=== PATIENT | female | born 1980 | race African-American/Black ===

== ENCOUNTER 2020-04-01 02:14 | Emergency (ER) | payer OTHER ==
[2020-04-01 02:32] VITALS: BMI 28.6
[2020-04-01] MEDS ORDERED: SODIUM CHLORIDE 0.9% 500 ML INFUS.BAG IV ONE (03:39)
[2020-04-01 03:48] LABS: BASO % 0.8 % (0-2.0); EOS % 1.4 % (0-4.5); HEMATOCRIT 33.8 % (32.4-45.2); HEMOGLOBIN 11.5 GM/dL (10.7-15.3); MCH 30.2 pg (25.7-33.7); MEAN CELL VOLUME 88.8 fl (80-96); MEAN PLT VOLUME 10.2 fl (7.5-11.1); MONO % 6.4 % (3.8-10.2); NEUT % 72.4 % (42.8-82.8); PLATELET COUNT 196 K/MM3 (134-434); RBC 3.81 M/mm3 (3.60-5.2); RDW 13.4 % (11.6-15.6); WHITE BLOOD COUNT 12.3 K/mm3 (4.0-10.0)
[2020-04-01 04:05] LABS: ALBUMIN 3.2 g/dl (3.4-5.0); CALCIUM 8.7 mg/dL (8.5-10.1)
[2020-04-01 04:07] LABS: BLOOD UREA NITROGEN 8.6 mg/dL (7-18)
[2020-04-01 04:10] LABS: CREATININE 0.5 mg/dL (0.55-1.3)
[2020-04-01 04:11] LABS: BILIRUBIN,TOTAL 0.2 mg/dL (0.2-1); TOT PROT 6.3 g/dl (6.4-8.2)
[2020-04-01 04:28] LABS: EPI CELLS 34 /uL (0-25.1); HYALINE CASTS 4 /uL (0-3.1); PH,URINE 6.5 (5.0-8.0); URINE APPEARANCE TURBID; URINE BACTERIA 556 /uL (0-1359); URINE BILIRUBIN NEGATIVE (NEGATIVE); URINE COLOR YELLOW; URINE GLUCOSE (UA) NEGATIVE (NEGATIVE); URINE KETONE NEGATIVE (NEGATIVE); URINE LEUK ESTERASE TRACE (NEGATIVE); URINE NITRITE NEGATIVE (NEGATIVE); URINE PROTEIN NEGATIVE (NEGATIVE); URINE UROBILINOGEN 0.2 mg/dL (0.2-1.0); URINE WBC 28 /uL (0-25.8); YEAST REVIEW (NEGATIVE)
[2020-04-01 06:28] LABS: URINE RBC 320.2 /uL (0-23.9)
[2020-04-01 06:32] LABS: EPI CELLS 10 /uL (0-25.1); HYALINE CASTS 0 /uL (0-3.1); PH,URINE 6.5 (5.0-8.0); URINE APPEARANCE CLOUDY; URINE BACTERIA 233 /uL (0-1359); URINE BILIRUBIN NEGATIVE (NEGATIVE); URINE COLOR YELLOW; URINE GLUCOSE (UA) NEGATIVE (NEGATIVE); URINE KETONE NEGATIVE (NEGATIVE); URINE LEUK ESTERASE NEGATIVE (NEGATIVE); URINE NITRITE NEGATIVE (NEGATIVE); URINE PROTEIN NEGATIVE (NEGATIVE); URINE RBC 194 /uL (0-23.9); URINE UROBILINOGEN 0.2 mg/dL (0.2-1.0); URINE WBC 13 /uL (0-25.8)
[2020-04-01 07:07] VITALS: BP 107/52; PULSE 75; TEMP 98
[2020-04-01 07:33] LABS: BLOOD UREA NITROGEN 7.3 mg/dL (7-18)
[2020-04-01] MEDS ORDERED: CEPHALEXIN MONOHYDRATE 500 MG CAPSULE (UD) PO ONE (07:35)
[2020-04-01 07:36] LABS: CREATININE 0.4 mg/dL (0.55-1.3)
[2020-04-01] MEDS ORDERED: CEPHALEXIN MONOHYDRATE 500 MG CAPSULE (UD) ONE (08:09)
== END 2020-04-01 08:18 | disposition home or self-care (01) ==
LOC: JER 02:14
DX: O20.9 Hemorrhage in early pregnancy, unspecified (principal); Z3A.17 17 weeks gestation of pregnancy
CPT/HCPCS: 36415; 80048; 80053; 81003; 85025; 87086; 99284-25

== ENCOUNTER 2020-04-04 08:01 | Day surgery (SDC) | payer OTHER ==
[2020-04-04 08:54] VITALS: BMI 28.6
[2020-04-04] MEDS ORDERED: CEFAZOLIN 2 GM in DEXTROSE 5%-WATER - 50 ML IVPB ONE (08:55)
[2020-04-04] MEDS ORDERED: LACTATED RINGERS SOLUTION 1000 ML INFUS.BAG IV ONE (08:55)
[2020-04-04] MEDS ORDERED: MISOPROSTOL 200 MCG TABLET PV ONE (08:56)
[2020-04-04 09:02] LABS: BASO % 0.4 % (0-2.0); EOS % 0.7 % (0-4.5); HEMATOCRIT 34.2 % (32.4-45.2); HEMOGLOBIN 11.5 GM/dL (10.7-15.3); INR 0.95 (0.83-1.09); LYMPH % 9.2 % (8-40); MCH 29.8 pg (25.7-33.7); MCHC 33.7 g/dl (32.0-36.0); MEAN CELL VOLUME 88.3 fl (80-96); MEAN PLT VOLUME 10.4 fl (7.5-11.1); MONO % 6.1 % (3.8-10.2); NEUT % 83.6 % (42.8-82.8); PLATELET COUNT 185 K/MM3 (134-434); PROTHROMBIN TIME (PATIENT) 11.7 SEC (9.7-13.0); RBC 3.87 M/mm3 (3.60-5.2); RDW 13.5 % (11.6-15.6); WHITE BLOOD COUNT 11.9 K/mm3 (4.0-10.0)
[2020-04-04 09:04] LABS: ACTIVATED PTT 26.4 SECONDS (25.2-36.5)
[2020-04-04] MEDS ORDERED: CEFAZOLIN 2 GM/D5W 2 GM/50 ML ML IVPB ONE (09:22)
[2020-04-04 09:24] LABS: ALBUMIN 2.9 g/dl (3.4-5.0); BLOOD UREA NITROGEN 5.5 mg/dL (7-18); CALCIUM 8.9 mg/dL (8.5-10.1)
[2020-04-04 09:27] LABS: CREATININE 0.5 mg/dL (0.55-1.3)
[2020-04-04 09:28] LABS: BILIRUBIN,TOTAL 0.4 mg/dL (0.2-1); TOT PROT 6.3 g/dl (6.4-8.2)
[2020-04-04] MEDS ORDERED: MISOPROSTOL 200 MCG TABLET PO ONE (10:31)
[2020-04-04] MEDS ORDERED: OXYTOCIN 20 UNITS in 0.9% NS 1000 ML INFUS.BAG IV ONE (10:45)
[2020-04-04] MEDS ORDERED: OXYTOCIN 20 UNITS in 0.9% NS 20 UNIT/1,000 ML INFUS.BAG IV ONE (12:22)
[2020-04-04] MEDS: MISOPROSTOL 200 MCG TABLET PV SCH ×3 (12:31→22:57)
[2020-04-04] MEDS ORDERED: ONDANSETRON 4 MG/2 ML VIAL IVPUSH PRN (16:21)
[2020-04-04] MEDS ORDERED: PROMETHAZINE HCL 25 MG/1 ML VIAL IVPUSH PRN (16:21)
[2020-04-04] MEDS ORDERED: MIDAZOLAM HCL 2 MG/2 ML SINGLE DOSE VIAL ONE (16:29)
[2020-04-04] MEDS ORDERED: PROPOFOL 20 ML ONE (16:29)
[2020-04-04] MEDS ORDERED: LACTATED RINGERS SOLUTION 1,000 ML IV SCH (16:30)
[2020-04-04] MEDS ORDERED: ceFAZolin SODIUM 1 GM VIAL IVPB ONE (17:22)
[2020-04-04] MEDS ORDERED: ALBUTEROL SO4 HFA INHALER IH ONE (17:54)
[2020-04-04] MEDS ORDERED: ceFAZolin SODIUM 1 GM VIAL ONE (17:55)
[2020-04-04] MEDS ORDERED: LIDOCAINE HCL/PF 2% SDV 5ML VIAL ONE (17:55)
[2020-04-04] MEDS ORDERED: LIDOCAINE HCL 2% JELLY (5 ML/TUBE) ONE (17:55)
[2020-04-04] MEDS ORDERED: DEXAMETHASONE SOD PHOSPHATE 4 MG/1 ML VIAL ONE (17:55)
[2020-04-04] MEDS ORDERED: ACETAMINOPHEN 325 MG TABLET (FP) PO PRN (18:09)
[2020-04-04] MEDS ORDERED: METHYLERGONOVINE MALEATE 0.2 MG/1 ML AMP IM PRN (18:09)
[2020-04-04] MEDS ORDERED: IBUPROFEN 600 MG TABLET (FP) PO PRN (18:09)
[2020-04-04] MEDS ORDERED: OXYTOCIN 20 UNITS in 0.9% NS 20 UNIT/1,000 ML INFUS.BAG IV SCH (18:15)
[2020-04-04] MEDS ORDERED: OXYTOCIN 10 UNITS/ML VIAL ONE (18:48)
[2020-04-04] MEDS: CEFAZOLIN 1 GM/D5W 1 GM/50 ML BAG IVPB SCH (20:27)
[2020-04-05] MEDS: CEFAZOLIN 1 GM/D5W 1 GM/50 ML BAG IVPB SCH (01:15)
[2020-04-05 05:19] LABS: BASO % 0.5 % (0-2.0); EOS % 0.1 % (0-4.5); HEMATOCRIT 30.9 % (32.4-45.2); HEMOGLOBIN 10.7 GM/dL (10.7-15.3); LYMPH % 8.5 % (8-40); MCH 30.3 pg (25.7-33.7); MCHC 34.7 g/dl (32.0-36.0); MEAN CELL VOLUME 87.4 fl (80-96); MEAN PLT VOLUME 10.3 fl (7.5-11.1); MONO % 5.6 % (3.8-10.2); NEUT % 85.3 % (42.8-82.8); PLATELET COUNT 199 K/MM3 (134-434); RBC 3.54 M/mm3 (3.60-5.2); WHITE BLOOD COUNT 14.8 K/mm3 (4.0-10.0)
[2020-04-05] MEDS ORDERED: FERROUS SO4 325 MG TABLET (FP) PO SCH (08:00)
[2020-04-05 08:56] VITALS: BP 119/65; PULSE 56; TEMP 97.6
[2020-04-05] MEDS ORDERED: PRENATAL VITAMINS W/ FOLIC ACID TABLET (FP) PO SCH (10:00)
[2020-04-05] MEDS ORDERED: SENNOSIDES/DOCUSATE COMBO (SENNA PLUS) TABLET (UD) PO PRN (22:00)
== END 2020-04-05 09:00 | disposition home or self-care (01) ==
LOC: JER 08:01 → JASUSAT 10:22 → JLDR 13:18 → J3W 19:54 → JASUSAT 04-05 09:00
PROVIDERS: ATTEND Obstetrics & Gynecology
PROC: 10D17Z9 Manual Extraction of Products of Conception, Retained, Via Natural or Artificial Opening (ICD-10-PCS; principal; 2020-04-04)
DX: O73.0 Retained placenta without hemorrhage (principal); Z3A.18 18 weeks gestation of pregnancy
CPT/HCPCS: 36415; 80053; 85025; 85610; 85730; 86850; 86900; 86901; 88300-TC; 94760; 99285-25; C9803; U0003

== ENCOUNTER 2021-02-25 21:57 | Emergency (ER) | payer OTHER ==
[2021-02-25 22:05] VITALS: BP 129/85; PULSE 71; TEMP 98.8; BMI 28.3
== END 2021-02-25 23:26 | disposition home or self-care (01) ==
LOC: JERFT 21:57
DX: B34.9 Viral infection, unspecified (principal)
CPT/HCPCS: 87804; 87807; 99283-25; C9803; U0003; U0005

== ENCOUNTER 2021-08-16 04:22 | Day surgery (SDC) | payer OTHER ==
[2021-08-10 17:44] VITALS: BMI 29.8
[2021-08-16] MEDS ORDERED: CLINDAMYCIN PHOSPHATE 600 MG/4 ML VIAL ONE ×2 (10:19→10:20)
[2021-08-16] MEDS ORDERED: LIDOCAINE HCL/PF 2% SDV 5ML VIAL ONE (10:37)
[2021-08-16] MEDS ORDERED: PROPOFOL 20 ML ONE ×2 (10:37→10:38)
[2021-08-16] MEDS ORDERED: DEXAMETHASONE SOD PHOSPHATE 4 MG/1 ML VIAL ONE (10:56)
[2021-08-16] MEDS ORDERED: METOPROLOL TARTRATE 5 MG/5 ML VIAL ONE (10:56)
[2021-08-16] MEDS ORDERED: KETOROLAC TROMETHAMINE 30 MG/1 ML VIAL ONE (11:09)
[2021-08-16] MEDS ORDERED: VASOPRESSIN 20 UNITS/ML VIAL IV ONE (11:12)
[2021-08-16] MEDS ORDERED: INDOMETHACIN 50 MG CAPSULE PO ONE (12:18)
[2021-08-16] MEDS ORDERED: ACETAMINOPHEN 325 MG TABLET (FP) PO PRN (12:24)
[2021-08-16] MEDS ORDERED: ONDANSETRON 4 MG/2 ML VIAL IVPUSH PRN (12:24)
[2021-08-16] MEDS ORDERED: LACTATED RINGERS SOLUTION 1,000 ML IV SCH (12:30)
[2021-08-16] MEDS ORDERED: ONDANSETRON 4 MG/2 ML VIAL ONE (12:44)
[2021-08-16 14:40] VITALS: TEMP 98
[2021-08-16 17:43] VITALS: BP 104/70; PULSE 70
== END 2021-08-16 17:00 | disposition home or self-care (01) ==
LOC: JASU-SURG 04:22
PROVIDERS: ATTEND Obstetrics & Gynecology Maternal & Fetal Medicine
PROC: 0UVC7ZZ Restriction of Cervix, Via Natural or Artificial Opening (ICD-10-PCS; principal; 2021-08-16 10:00)
DX: O34.31 Maternal care for cervical incompetence, first trimester (principal)
CPT/HCPCS: 94760; C9803-CS; U0003; U0005